=== PATIENT | female | born 1960 | race Caucasian/White ===

== ENCOUNTER 2019-10-14 13:33 | Outpatient (CLI) | payer OTHER, SELFPAY | END 2019-10-14 13:34 | disposition home or self-care (01) | LOC: ONCMED 13:36 | PROVIDERS: Family Provider Family Medicine; PCP Family Medicine; Visit Provider Internal Medicine Medical Oncology | DX: Z45.2 Encounter for adjustment and management of vascular access device (principal) | CPT/HCPCS: 96523 ==

== ENCOUNTER 2019-10-21 08:44 | Outpatient (CLI) | payer OTHER, SELFPAY ==
--- NOTE | 2019-10-21 08:53 | US_ITS ---
WS: [id number] RIGHT DIGITAL MAMMOGRAPHY WITH CAD CLINICAL INFORMATION: RT BREAST MASS COMPARISON: TECHNIQUE: 2 views of the right breast were obtained. FINDINGS: The right breast is composed of heterogeneous fibroglandular density tissue, which can limit the dete ction of small underlying mass lesions. Previous described asymmetry anterior medial right breast best seen on the cc view is unchanged. Ultr asound is pending. ULTRASOUND BREAST RIGHT TECHNIQUE: Ultrasound right breast focused area of concern. CLINICAL INFORMATION: RT BREAST MASS COMPARISON: None. FINDINGS: Ultrasound right breast 1:00 to 4:00. Ill-defined hypoechoic shadowing area taller than wide at the 3 :00 position. This area is difficult to visualize and measures approximately 1.2 x 0.6 CM. Recommend further evaluation with ultrasound-guided biopsy. In addition, at the 1:00 position is a slightly dilated lobulated duct with suggestion of intraductal lesion. This lesion measures 9.1 x 3.4 x 3.5 mm suspicious for papilloma. Recommend ultrasound-guide d biopsy of this area. US/US breast RT limited* [id number] IMPRESSION: BI-RADS: 4A-Suspicious: Low FOLLOW UP: US Guided Biopsy Recommended
== END 2019-10-21 08:45 | disposition home or self-care (01) ==
LOC: RADSHAW 08:46
PROVIDERS: Family Provider Family Medicine; PCP Family Medicine; Visit Provider Family Medicine
DX: N64.89 Other specified disorders of breast (principal); N64.9 Disorder of breast, unspecified
CPT/HCPCS: 76642; 77065

== ENCOUNTER 2019-10-27 06:04 | Day surgery (SDC) | payer OTHER, SELFPAY ==
[2019-10-24 10:06] VITALS: BMI 24.2
--- NOTE | 2019-10-27 06:52 | P.ANESASSM_ITS ---
Pre-Anesthetic Assessment Pre-Anesthetic Assessment: Height/Weight: Height 1.68 m Weight 68.039 kg Preop Diagnosis: screening colonoscopy Proposed Procedure: Operation Date: 10/27/19 07:00 Proposed Procedures p Colonoscopy(Not Applicable) - Christian Murray MD Was Beta Jimmy taken within 24 hours: N/A Last intake: Intake Last Liquid Date 10/26/19 Last Liquid Time 22:00 Last Solid Date 10/25/19 Last Solid Time 22:00 Social: Social History: No alcohol and No tobacco Exam: Pre-Anes Outpt Exam: alert, oriented x 3, clear to auscultation bilaterally and regular rate & rhythm Airway: Submandibular: WNL Cervical ROM: WNL MP: 2 Dentition: Full History/ROS: No significant history except as noted and No significant c omplaints Pulmonary: Pulmonary: None reported CV/HEM: CV/HEM: HTN : : None reported Hepatic: Hepatic: None reported GI: GI: None reported Metabolic: Metabolic: None reported Musc/skel: Musc/skel: None reported Neuropsych: Neuropsych: Neuropathy Anesthetic Plan: ASA status: III Anesthesia: MAC Risk of > 500 ml blood loss (7ml/kg in children): No PFSH Anesthesia PFSH: Social History Smoking and tobacco status: never smoked Alcohol intake: never Lives independently: Yes Household members: spouse Marital status: History of recent travel: No Data Anesthesia Cardiac Studies: No Data to Display
[2019-10-27 06:56] VITALS: BP 143/83; PULSE 65; RESP 18; TEMP 36.9; O2SAT 96
--- NOTE | 2019-10-27 06:58 | PM.HPUD ---
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
[2019-10-27 07:31] VITALS: BP 118/80; PULSE 68; RESP 16; TEMP 36.3; O2SAT 99
[2019-10-27] MEDS: sodium chloride 0.9% 1,000 ML 30 ML (07:59)
== END 2019-10-27 07:58 | disposition home or self-care (01) ==
PROVIDERS: Family Provider Family Medicine; PCP Family Medicine; Visit Provider Surgery
PROC: 0DJD8ZZ Inspection of Lower Intestinal Tract, Via Natural or Artificial Opening Endoscopic (ICD-10-PCS; CPT 45378; principal; 2019-10-27 07:00)
DX: Z12.11 Encounter for screening for malignant neoplasm of colon (principal); K57.30 Diverticulosis of large intestine without perforation or abscess without bleeding; K64.8 Other hemorrhoids; I10 Essential (primary) hypertension; Z92.3 Personal history of irradiation; Z92.21 Personal history of antineoplastic chemotherapy; Z85.42 Personal history of malignant neoplasm of other parts of uterus; Z82.49 Family history of ischemic heart disease and other diseases of the circulatory system
CPT/HCPCS: 12345; 45378; J2704; J7030

== ENCOUNTER 2019-10-31 06:40 | Outpatient (REF) | payer OTHER, SELFPAY ==
[2019-10-31 09:41] LABS: Estmated Average Glucose 114; Hemoglobin A1C 5.6 % (4.0-6.0)
[2019-10-31 10:50] LABS: Chol HDL Ratio 3.25 mg/dL (0.0-4.40); Cholesterol 257 mg/dL (0-200); Glucose 97 mg/dL (65-115); HDL Cholesterol 79 mg/dL (60-100); LDL Cholesterol Calculated 166 mg/dL (50-129); Triglycerides 58 mg/dL (0-150)
== END 2019-10-31 06:41 | disposition home or self-care (01) ==
LOC: LAB 06:40
PROVIDERS: Family Provider Family Medicine; PCP Family Medicine; Visit Provider Dermatology
DX: Z01.89 Encounter for other specified special examinations (principal)
CPT/HCPCS: 80061; 82947; 83036

== ENCOUNTER 2019-11-03 12:43 | Outpatient (CLI) | payer OTHER, SELFPAY ==
--- NOTE | 2019-11-03 12:55 | US_ITS ---
WS: [id number] ULTRASOUND-GUIDED RIGHT BREAST BIOPSY CLINICAL INFORMATION: right breast mass COMPARISON: October 21, 2019 FINDINGS: The procedure including risks, benefits, and complications were discussed with the patient who agreed to proceed. Using sterile technique patient was prepped and draped in the usual sterile fashion. Aft er 1% lidocaine utilizing real-time ultrasound guidance 5 14-gauge cores were obtained of the right b reast lesion at the 1 o'clock position. Subsequently a titanium clip was placed in the biopsy cavity. No immediate complications. Additional previously described vague ill-defined lesion at the 3:00 position is also compared. Some shadowing in this location which may be due to a superficial calcification. This is near the prior paulina mpectomy and may represent scar tissue. Recommend 3 month follow-up to assess stability. Findings dis cussed with patient at time of biopsy. Pathology demonstrates benign breast tissue with changes of disrupted fibroadenoma. No malignancy mary jane ntified. 3 month follow-up ultrasound to assess the ill-defined shadowing at the 3:00 position. Biopsy site ca n also be assessed at that time. Then recommend 6 month right diagnostic mammogram and ultrasound from the time of biopsy US/[place] [id number] IMPRESSION: 1. Uncomplicated ultrasound-guided right breast biopsy. 2. The pathology demonstrates benign breast tissue with changes of disrupted f ibroadenoma. No malignancy identified. BI-RADS: 3-Probably Benign FOLLOW UP: 3 Month Follow-up
== END 2019-11-03 12:44 | disposition home or self-care (01) ==
LOC: RAD 12:49
PROVIDERS: Family Provider Family Medicine; PCP Family Medicine; Visit Provider Surgery
DX: N63.10 Unspecified lump in the right breast, unspecified quadrant (principal)
CPT/HCPCS: 19083; 88305; J2001

== ENCOUNTER 2019-12-02 13:28 | Outpatient (CLI) | payer OTHER, SELFPAY | END 2019-12-02 13:29 | disposition home or self-care (01) | LOC: ONCMED 13:30 | PROVIDERS: Family Provider Family Medicine; PCP Family Medicine; Visit Provider Internal Medicine Medical Oncology | DX: Z45.2 Encounter for adjustment and management of vascular access device (principal) | CPT/HCPCS: 96523 ==

== ENCOUNTER 2020-01-30 09:19 | Outpatient (CLI) | payer OTHER, SELFPAY ==
--- NOTE | 2020-01-30 09:30 | US_ITS ---
WS: [id number] ULTRASOUND BREAST RIGHT TECHNIQUE: Ultrasound right breast focused area of concern. CLINICAL INFORMATION: ABNORMAL MAMMOGRAM COMPARISON: Ultrasound , mammogram September 12, 2019, and July 21, 2016 FINDINGS: Ultrasound right breast at the 1:00 and 3:00 position. Prior biopsy of breast lesion at the 1:00 posi tion November 03, 2019. Pathology demonstrates benign breast tissue with changes of disrupted fibroad enoma at the 1:00 position. Lobulated hypoechoic lesion corresponding to presumed fibroadenoma is unc hanged measuring 7.5 x 4.6 mm. Previously described vague hypoechoic lesion at the 3:00 position is difficult to reproduce but appea rs unchanged. This is PROBABLY BENIGN AND RECOMMEND DIAGNOSTIC MAMMOGRAPHY RIGHT BREAST AND ULTRASOUN D OF 3:00 LESION IN 6 MONTHS, AT THE TIME OF ANNUAL DIAGNOSTIC MAMMOGRAPHY US/US breast RT limited* [id number] IMPRESSION: BI-RADS 3 probably benign Follow up: 6 MONTH
== END 2020-01-30 09:20 | disposition home or self-care (01) ==
LOC: RAD 09:20
PROVIDERS: PCP Family Medicine; Visit Provider Surgery
DX: R92.8 Other abnormal and inconclusive findings on diagnostic imaging of breast (principal); N64.89 Other specified disorders of breast
CPT/HCPCS: 76642

== ENCOUNTER 2020-01-30 09:21 | Outpatient (CLI) | payer OTHER, SELFPAY | END 2020-01-30 09:22 | disposition home or self-care (01) | LOC: ONCMED 09:21 | PROVIDERS: PCP Family Medicine; Visit Provider Internal Medicine Medical Oncology | DX: Z45.2 Encounter for adjustment and management of vascular access device (principal); C55 Malignant neoplasm of uterus, part unspecified | CPT/HCPCS: 96523 ==

== ENCOUNTER 2020-03-01 13:27 | Outpatient (CLI) | payer OTHER, SELFPAY | END 2020-03-01 13:28 | disposition home or self-care (01) | LOC: ONCMED 13:29 | PROVIDERS: PCP Family Medicine; Visit Provider Internal Medicine Medical Oncology | DX: Z45.2 Encounter for adjustment and management of vascular access device (principal); C55 Malignant neoplasm of uterus, part unspecified | CPT/HCPCS: 96523 ==

== ENCOUNTER 2020-05-25 13:33 | Outpatient (CLI) | payer OTHER, SELFPAY | END 2020-05-25 13:34 | disposition home or self-care (01) | LOC: ONCMED 13:36 | PROVIDERS: PCP Family Medicine; Visit Provider Internal Medicine Medical Oncology | DX: Z45.2 Encounter for adjustment and management of vascular access device (principal) | CPT/HCPCS: 96523 ==

== ENCOUNTER 2020-07-26 06:37 | Outpatient (CLI) | payer OTHER, SELFPAY | END 2020-07-26 06:38 | disposition home or self-care (01) | LOC: ONCMED 06:38 | PROVIDERS: PCP Family Medicine; Visit Provider Internal Medicine Medical Oncology | DX: Z45.2 Encounter for adjustment and management of vascular access device (principal); C55 Malignant neoplasm of uterus, part unspecified | CPT/HCPCS: 96523 ==

== ENCOUNTER 2020-09-02 13:24 | Outpatient (CLI) | payer OTHER, SELFPAY | END 2020-09-02 13:25 | disposition home or self-care (01) | LOC: ONCMED 13:26 | PROVIDERS: PCP Family Medicine; Visit Provider Internal Medicine Medical Oncology | DX: Z45.2 Encounter for adjustment and management of vascular access device (principal) | CPT/HCPCS: 96523 ==

== ENCOUNTER 2020-09-13 15:58 | Outpatient (CLI) | payer OTHER, SELFPAY ==
--- NOTE | 2020-09-13 16:04 | XR_ITS ---
WS: [id number] SCREENING DEXA SCAN [employer] CLINICAL INFORMATION: POSTMENOPAUSAL COMPARISON: None. FINDINGS: The L1-L4 bone mineral density measures 1.187 g/cm2. This corresponds to a T score score of 0.1 and Z score of 1.2. Left femoral neck bone mineral density measures 0.874 g/cm2. This corresponds to a T score of -1.1 an d Z score of -0.2. Right femoral neck bone mineral density measures 0.847 g/cm2. This corresponds to a T score -1.3of an d Z score of -0.4. Mean femoral neck bone mineral density measures 0.860 g/cm2. This corresponds to a T score of -1.2 an d Z score of -0.3. XR/XR DEXA axial skeleton* [id number] IMPRESSION: Normal bone mineralization in the lumbar spine. Osteopenia in the femoral necks . Patient's FRAX calculated 10 year probability for major osteoporotic fracture i s 8.2 % and osteoporotic hip fracture is 0.8%.
== END 2020-09-13 15:59 | disposition home or self-care (01) ==
LOC: RADWPI 15:59
PROVIDERS: PCP Family Medicine; Visit Provider Family Medicine
DX: Z78.0 Asymptomatic menopausal state (principal)
CPT/HCPCS: 77080

== ENCOUNTER 2020-10-08 13:58 | Outpatient (CLI) | payer OTHER, SELFPAY ==
--- NOTE | 2020-10-08 14:07 | MM_ITS ---
WS: [id number] BILATERAL DIGITAL DIAGNOSTIC MAMMOGRAM MAMMOGRAPHY WITH CAD CLINICAL INFORMATION: N64.9 - Disorder of breast, unspecified COMPARISON: October 21, 2019 TECHNIQUE: Bilateral CC, MLO, and ML views. FINDINGS: The breasts are composed of heterogeneous fibroglandular density, which can limit the detection of sm all underlying mass lesions. Previously described asymmetric density inferior medial right breast best seen on the cc view is unch anged. Left breast is unremarkable. Ultrasound is pending. ULTRASOUND BREAST RIGHT TECHNIQUE: Ultrasound right breast focused area of concern. CLINICAL INFORMATION: N64.9 - Disorder of breast, unspecified COMPARISON: Prior ultrasound 01/30/2020 and 11/03/2019 October 21, 2019 FINDINGS: Previously described vague hypoechoic lesion at the 3:00 position is difficult to visualize today and measures smaller 2.1 x 2.6 mm. Asymmetry persists on the mammogram. This is PROBABLY BENIGN AND REC OMMEND ADDITIONAL SIX-MONTH FOLLOW-UP WITH RIGHT DIAGNOSTIC MAMMOGRAPHY AND ULTRASOUND TO ENSURE STAB ILITY MM/[place] [id number] IMPRESSION: BI-RADS: 3-Probably Benign FOLLOW UP: 6 Month Follow-up
== END 2020-10-08 13:59 | disposition home or self-care (01) ==
LOC: RADSHAW 14:02
PROVIDERS: PCP Family Medicine; Visit Provider Surgery
DX: N64.9 Disorder of breast, unspecified (principal)
CPT/HCPCS: 76642; 77066

== ENCOUNTER 2021-01-20 13:26 | Outpatient (CLI) | payer OTHER, SELFPAY | END 2021-01-20 13:27 | disposition home or self-care (01) | LOC: ONCMED 13:28 | PROVIDERS: PCP Family Medicine; Visit Provider Internal Medicine Medical Oncology | DX: Z45.2 Encounter for adjustment and management of vascular access device (principal) | CPT/HCPCS: 96523 ==

== ENCOUNTER 2021-04-12 08:55 | Outpatient (CLI) | payer OTHER, SELFPAY ==
--- NOTE | 2021-04-12 09:00 | MM_ITS ---
WS: [id number] RIGHT DIGITAL MAMMOGRAPHY WITH CAD CLINICAL INFORMATION: N64.89 - Other specified disorders of breast HISTORY: Six-month follow-up COMPARISON: October 08, 2020 TECHNIQUE: 5 views of the right breast were obtained. FINDINGS: The breasts are composed of heterogeneous fibroglandular density, which can limit the detection of sm all underlying mass lesions. Previously described asymmetric density inferior medial right breast bes t seen on the cc view measuring approximately 5 mm is unchanged. Biopsy clip right breast. Lucent centered calcification. Ultrasound is pending. ULTRASOUND BREAST RIGHT TECHNIQUE: Ultrasound right breast focused area of concern. CLINICAL INFORMATION: N64.89 - Other specified disorders of breast FINDINGS: Multiple prior ultrasounds were reviewed dating back to September 2019 Prior biopsy of a breast lesion at the 1:00 position November 03, 2019 that demonstrated disrupted fi broadenoma. Previously described vague hypoechoic lesion at 3:00 position near the lumpectomy site has been diffi cult to define over multiple prior examinations but is more distinct today measuring 7.5 x 7.2 x 3.8 mm. Hypoechoic lesion in this location is taller than wide and may represent scar tissue but indeterm inant. Due to persistence, recommend ultrasound-guided biopsy for definitive evaluation. MM/[place] [id number] IMPRESSION: BI-RADS: 4-Suspicious Finding-Biopsy Should Be Considered FOLLOW UP: US Guided Biopsy Recommended RECOMMEND ULTRASOUND-GUIDED BIOPSY OF THE 3:00 LESION RIGHT BREAST DESCRIBED AB JIMENEZ.
--- NOTE | 2021-04-12 09:30 | US_ITS ---
WS: [id number] RIGHT DIGITAL MAMMOGRAPHY WITH CAD CLINICAL INFORMATION: N64.89 - Other specified disorders of breast HISTORY: Six-month follow-up COMPARISON: October 08, 2020 TECHNIQUE: 5 views of the right breast were obtained. FINDINGS: The breasts are composed of heterogeneous fibroglandular density, which can limit the detection of sm all underlying mass lesions. Previously described asymmetric density inferior medial right breast bes t seen on the cc view measuring approximately 5 mm is unchanged. Biopsy clip right breast. Lucent centered calcification. Ultrasound is pending. ULTRASOUND BREAST RIGHT TECHNIQUE: Ultrasound right breast focused area of concern. CLINICAL INFORMATION: N64.89 - Other specified disorders of breast FINDINGS: Multiple prior ultrasounds were reviewed dating back to September 2019 Prior biopsy of a breast lesion at the 1:00 position November 03, 2019 that demonstrated disrupted fi broadenoma. Previously described vague hypoechoic lesion at 3:00 position near the lumpectomy site has been diffi cult to define over multiple prior examinations but is more distinct today measuring 7.5 x 7.2 x 3.8 mm. Hypoechoic lesion in this location is taller than wide and may represent scar tissue but indeterm inant. Due to persistence, recommend ultrasound-guided biopsy for definitive evaluation. US/US breast RT limited* [id number] IMPRESSION: BI-RADS: 4-Suspicious Finding-Biopsy Should Be Considered FOLLOW UP: US Guided Biopsy Recommended RECOMMEND ULTRASOUND-GUIDED BIOPSY OF THE 3:00 LESION RIGHT BREAST DESCRIBED AB BARBARA.
== END 2021-04-12 08:56 | disposition home or self-care (01) ==
PROVIDERS: PCP Family Medicine; Visit Provider Surgery
DX: N64.89 Other specified disorders of breast (principal); N63.15 Unspecified lump in the right breast, overlapping quadrants
CPT/HCPCS: 76642; 77065

== ENCOUNTER 2021-05-06 12:00 | Outpatient (CLI) | payer OTHER, SELFPAY ==
--- NOTE | 2021-05-06 13:00 | US_ITS ---
WS: [id number] ULTRASOUND RIGHT BREAST HISTORY: R92.8 - Other abnormal and inconclusive findings on diagnostic mammogram. COMPARISON: 04/12/2021, 10/08/2020, 09/12/2019. TECHNIQUE: 2-D and Doppler. Patient presents for biopsy of the RIGHT breast nodule seen on 04/12/2021. Imaging of the RIGHT breast at 3:00 demonstrates no abnormality. There are no suspicious findings or shadowing or distortion. I see will not be performed. This was explained to the patient. US/US breast RT limited* [id number] IMPRESSION: BI-RADS: 3-Probably Benign FOLLOW-UP: 6 Month Follow-up Diagnostic RIGHT breast mammogram in 6 months and possible ultrasound.
== END 2021-05-06 12:01 | disposition home or self-care (01) ==
LOC: RAD 12:03
PROVIDERS: PCP Family Medicine; Visit Provider Surgery
DX: R92.8 Other abnormal and inconclusive findings on diagnostic imaging of breast (principal)
CPT/HCPCS: 76642

== ENCOUNTER 2021-07-28 13:12 | Outpatient (CLI) | payer OTHER, SELFPAY | END 2021-07-28 13:13 | disposition home or self-care (01) | PROVIDERS: PCP Family Medicine; Visit Provider Internal Medicine Medical Oncology | DX: Z45.2 Encounter for adjustment and management of vascular access device (principal) | CPT/HCPCS: 96523 ==

== ENCOUNTER 2021-10-04 14:37 | Outpatient (RCR) | payer OTHER, SELFPAY | END 2021-10-24 23:59 | disposition home or self-care (01) | LOC: SPT 14:37 | PROVIDERS: PCP Family Medicine; Referring Provider Orthopaedic Surgery; Visit Provider Orthopaedic Surgery | DX: S46.092D Other injury of muscle(s) and tendon(s) of the rotator cuff of left shoulder, subsequent encounter (principal); X58.XXXD Exposure to other specified factors, subsequent encounter | CPT/HCPCS: 97110; 97162 ==

== ENCOUNTER → 2021-10-07 08:30 | Outpatient (BNVA) | payer OTHER, SELFPAY | PROVIDERS: PCP Family Medicine; Visit Provider Nurse Practitioner Family | DX: Z20.822 Contact with and (suspected) exposure to COVID-19 (principal) | CPT/HCPCS: 87635 ==

== ENCOUNTER 2021-10-25 06:00 | Outpatient (RCR) | payer OTHER, SELFPAY | END 2021-11-21 23:59 | disposition home or self-care (01) | LOC: SPT 06:00 | PROVIDERS: PCP Family Medicine; Referring Provider Orthopaedic Surgery; Visit Provider Orthopaedic Surgery | DX: S46.092D Other injury of muscle(s) and tendon(s) of the rotator cuff of left shoulder, subsequent encounter (principal); X58.XXXD Exposure to other specified factors, subsequent encounter | CPT/HCPCS: 97110 ==

== ENCOUNTER 2021-11-09 10:35 | Outpatient (CLI) | payer OTHER, SELFPAY ==
--- NOTE | 2021-11-09 10:47 | MM_ITS ---
WS: [id number] DIAGNOSTIC BILATERAL DIGITAL MAMMOGRAM WITH CAD RIGHT breast ultrasound, limited HISTORY: R92.8 - Other abnormal and inconclusive findings on diagnostic mammogram. COMPARISON: 04/12/2021, 10/08/2020, 10/21/2019, 09/12/2019 TECHNIQUE: Bilateral craniocaudad, mediolateral oblique, and mediolateral views are submitted. Spot c ompression views RIGHT CC and MLO. Computer aided detection utilized. Breast composition: The breasts are heterogeneously dense, which may obscure small masses. Biopsy cli p superior RIGHT breast. No associated soft tissue mass or calcification. There is an area of archite ctural distortion in the superior RIGHT breast for which additional views were performed. The distort ion Completely resolves and becomes more consistent with prior imaging studies. No abnormality in the LEF T breast. RIGHT breast ultrasound, limited. Ultrasound is performed of the RIGHT breast at 3:00, 10:00 and 12:00. There are no persistent abnorma lities. No area of shadowing or architectural distortion. The nodule at 12:00, 1 cm from the nipple w as previously biopsied. This mass was imaged on the prior study 10/21/2019 but labeled 1:00. MM/[place] [id number] IMPRESSION: BI-RADS: 2-Benign FOLLOW UP: 1 Year Follow-up
== END 2021-11-09 10:36 | disposition home or self-care (01) ==
LOC: RADSHAW 10:41
PROVIDERS: PCP Family Medicine; Visit Provider Surgery
DX: R92.8 Other abnormal and inconclusive findings on diagnostic imaging of breast (principal)
CPT/HCPCS: 76642; 77066

== ENCOUNTER 2021-11-21 05:48 | Day surgery (SDC) | payer OTHER, SELFPAY ==
[2021-11-18 13:55] VITALS: BMI 24.2
[2021-11-21 05:58] VITALS: PULSE 67; RESP 18; TEMP 36.5; O2SAT 99
--- NOTE | 2021-11-21 06:52 | W.PM.OPSFHP ---
Same Day Surgery H&P Indication for Procedure/HPI DATE OF PROCEDURE: November 21, 2021 CHIEF COMPLAINT/INDICATIONFOR SURGICAL PROCEDURE: port removal PREOP DIAGNOSIS: screening colonoscopy PLANNED PROCEDURE: Operation Date: 11/21/21 07:00 Proposed Procedures p Portacath Removal 29169/z45.2 LOCAL ONLY(Not Applicable) - Christian Murray MD Medications/Allergies* Home Medications Medication Instructions Recorded Confirmed Type cyanocobalamin (vitamin B-12) 500 500 mcg PO DAILY 09/26/19 11/21/21 History mcg tablet (B-12 DOTS) losartan 50 mg tablet 50 mg PO BID 09/26/19 11/21/21 History triamcinolone acetonide 0.5 % 1 applic TOPICAL BID PRN 09/26/19 11/18/21 History topical cream Allergies/Adverse Reactions Allergy/AdvReac Type Severity Reaction Status Date / Time No Known Allergies Allergy Verified 11/21/21 06:02 Pertinent History/Comorbid Conditions* Medical History (Updated 10/27/19 @ 07:28 by Christian Murray MD) H/O sigmoidoscopy History of chemotherapy History of radiation therapy Hypertension Neuropathy due to Chemo Uterine carcinosarcoma Stage II Surgical History (Updated 11/11/21 @ 13:05 by Christian Murray MD) Encounter for venous access device care Mediport right subclavian vein History of carpal tunnel release Right History of decompression of ulnar nerve Right History of lumpectomy of both breasts History of rotator cuff surgery left-08/2021 S/P total hysterectomy and BSO (bilateral salpingo-oophorectomy) With pelvic and periaortic lymph node dissection and omentectomy Status post colonoscopy 10/27/2019: Diverticulosis, follow-up colonoscopy in 5 years due to family history Family History (Updated 09/26/19 @ 10:10 by Rosie Marks RN) CAD (coronary artery disease) Father Cancer Father Denies family history of Anesthesia complication Bleeding disorder Social History Smoking and tobacco status: never smoked Alcohol intake: never Lives independently: Yes Household members: spouse Marital status: History of recent travel: No Pertinent Exam Findings alert, oriented x 3 and operative site marked Recommendations Surgery/Procedure today Coding Level of Care Code Acute 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
[2021-11-21 06:58] VITALS: BP 121/66; PULSE 64; RESP 12; TEMP 36.7; O2SAT 100
[2021-11-21] MEDS: lidocaine 1% INJ 20 mL INJECTION (07:11)
[2021-11-21 07:45] VITALS: BP 132/78; PULSE 68; RESP 18; O2SAT 100
--- NOTE | 2021-11-21 10:05 | PM.OP ---
Operative Report Date of procedure: November 21, 2021 Pre-op diagnosis: Status post chemotherapy, no longer requires a Port-A-Cath Post-op diagnosis: same Procedure done: Removal of Port-A-Cath from the right internal jugular vein Specimens removed/disposition: Port-A-Cath Surgeon: Christian Murray Anesthesia: Local Condition: stable Disposition: PACU Procedure: Patient was taken to the operating room and her right chest was prepped and draped in a sterile manner. 1% lidocaine with 0.5% Marcaine was infiltrated around the MediPort and catheter in the right internal jugular vein. Using a 15 blade the previous incision was opened, the subcutaneous tissue was divided using electrocautery and MediPort along the catheter was dissected free from the surrounding subcutaneous tissue and removed entirely. The capsule around the Mediport was excised using electrocautery, the wound was irrigated with saline, hemostasis ensured with electrocautery and subcutaneous tissue was approximated using 3-0 Vicryl suture and skin was closed using running subcuticular 4-0 Monocryl suture. 4x4 and sterile dressings were used as a pressure dressing. The patient was transferred to the recovery room in stable condition. The MediPort was sent to pathology
== END 2021-11-21 07:44 | disposition home or self-care (01) ==
PROVIDERS: PCP Family Medicine; Visit Provider Surgery
PROC: (CPT 36589; principal; 2021-11-21 07:00)
DX: Z45.2 Encounter for adjustment and management of vascular access device (principal)
CPT/HCPCS: 36590; J3490

== ENCOUNTER 2021-11-22 06:00 | Outpatient (RCR) | payer OTHER, SELFPAY | END 2021-12-01 23:59 | disposition home or self-care (01) | LOC: SPT 06:00 | PROVIDERS: PCP Family Medicine; Referring Provider Orthopaedic Surgery; Visit Provider Orthopaedic Surgery | DX: S46.092D Other injury of muscle(s) and tendon(s) of the rotator cuff of left shoulder, subsequent encounter (principal); X58.XXXD Exposure to other specified factors, subsequent encounter | CPT/HCPCS: 97110 ==

== ENCOUNTER → 2022-04-06 15:48 | Outpatient (BNVA) | payer OTHER, SELFPAY | PROVIDERS: PCP Family Medicine; Referring Provider Family Medicine; Visit Provider Internal Medicine | DX: E04.9 Nontoxic goiter, unspecified (principal) | CPT/HCPCS: 36415; 83516; 84439; 84443; 86376; 86800 ==

== ENCOUNTER 2022-06-06 11:51 | Outpatient (CLI) | payer OTHER, SELFPAY ==
--- NOTE | 2022-06-06 12:00 | US_ITS ---
WS: [id number] THYROID ULTRASOUND HISTORY: Goiter COMPARISON: 09/25/2017 Right lobe: 2.8 cm x 2.6 cm x 6.6 cm (w x ap x l). Volume: 25.4 cm3. Enlarged diffusely heterogeneous gland. Mild increased vascularity. The echogenic foci seen on the pr ior examination are not as apparent today. There are no discrete nodules. Left lobe: 2.6 cm x 2.1 cm x 6.5 cm (w x ap x l). Volume: 18.4 cm3. Enlarged gland. Very mildly heterogeneous with small ill-defined hypoechoic nodules. No mass. Increas ed vascularity. Small lymph node versus parathyroid adenoma measuring 5 x 5 x 7 mm posterior to the inferior LEFT thy roid. Isthmus: 0.4 cm. US/US thyroid [id number] IMPRESSION: 1. Enlarged mildly heterogeneous hypervascular thyroid consistent with thyroid itis. 2. No discrete nodule.
== END 2022-06-06 11:52 | disposition home or self-care (01) ==
LOC: RAD 11:53
PROVIDERS: PCP Family Medicine; Visit Provider Internal Medicine
DX: E04.9 Nontoxic goiter, unspecified (principal)
CPT/HCPCS: 76536

== ENCOUNTER → 2022-08-29 10:37 | Outpatient (BNVA) | payer OTHER, SELFPAY | PROVIDERS: PCP Family Medicine; Visit Provider Family Medicine | DX: Z00.00 Encounter for general adult medical examination without abnormal findings (principal) | CPT/HCPCS: 80053; 80061; 84443; 85025 ==

== ENCOUNTER 2022-11-17 07:54 | Outpatient (CLI) | payer OTHER, SELFPAY ==
--- NOTE | 2022-11-17 08:00 | MM_ITS ---
WS: [id number] VIEWS: MLO and CC views both breasts. 3D digital tomosynthesis is also included in this exam. Comparison made with prior exam of 07/21/2016, 09/12/2019, 10/21/2019, 10/08/2020, 11/09/2021.. Findings: There was no sign of mass, architectural distortion or suspicious calcification in either breast. Sta ble appearing parenchymal densities in both breasts. Biopsy marker in the central upper right breast. Heterogeneously dense MM/[place] [id number] Impression: BI-RADS: 2-Benign FOLLOW-UP: 1 Year Follow-up This mammogram was also analyzed by the Computer Aided Detection System R2 Imag e [employer] Worker.
== END 2022-11-17 07:55 | disposition home or self-care (01) ==
LOC: RAD 07:56
PROVIDERS: PCP Family Medicine; Visit Provider Family Medicine
DX: Z12.31 Encounter for screening mammogram for malignant neoplasm of breast (principal)
CPT/HCPCS: 77063; 77067

== ENCOUNTER → 2023-05-10 09:23 | Outpatient (BNVA) | payer OTHER, SELFPAY | PROVIDERS: PCP Family Medicine; Visit Provider Internal Medicine | DX: E04.9 Nontoxic goiter, unspecified (principal); E06.3 Autoimmune thyroiditis | CPT/HCPCS: 36415; 84439; 84443 ==

== ENCOUNTER 2023-05-22 06:07 | Outpatient (CLI) | payer OTHER, SELFPAY ==
--- NOTE | 2023-05-22 06:15 | US_ITS ---
WS: [id number] THYROID ULTRASOUND HISTORY: goiter COMPARISON: 06/06/2022 Right lobe: 3.2 cm x 2.8 cm x 7.1 cm (w x ap x l). Volume: 32.2 cm3. Markedly enlarged heterogeneous thyroid with increased vascularity. No well-formed discrete mass is i dentified. Very minimal progression of enlargement since the prior examination. Left lobe: 2.4 cm x 2.4 cm x 6.4 cm (w x ap x l). Volume: 19.0 cm3. Moderately enlarged heterogeneous thyroid with increased vascularity. No well-formed nodule. Possible developing nodule measuring 5 x 6 x 7 mm in the mid gland. Margins are poorly visualized. No echogen ic foci. Isthmus: 0.7 cm. IMPRESSION: 1. Enlarged heterogeneous, hypervascular thyroid. Consider Lakesha's thyroiditis. 2. There are no suspicious nodules or masses. 3. RIGHT thyroid lobe as slightly increased in size since 06/06/2022.
== END 2023-05-22 06:08 | disposition home or self-care (01) ==
LOC: RAD 06:08
PROVIDERS: PCP Family Medicine; Visit Provider Internal Medicine
DX: E04.9 Nontoxic goiter, unspecified (principal); E06.3 Autoimmune thyroiditis
CPT/HCPCS: 76536

== ENCOUNTER → 2023-07-30 13:21 | Outpatient (BNVA) | payer OTHER, SELFPAY | PROVIDERS: PCP Family Medicine; Visit Provider Podiatrist Foot & Ankle Surgery | DX: G57.63 Lesion of plantar nerve, bilateral lower limbs | CPT/HCPCS: 73630 ==

== ENCOUNTER 2023-08-14 11:37 | Outpatient (CLI) | payer OTHER, SELFPAY ==
--- NOTE | 2023-08-14 11:45 | USR_ITS ---
PROCEDURE INFORMATION: Exam: US Left Non-Vascular Joint or Other Extremity Structure Exam date and time: 08/14/2023 12:04 PM Age: 63 years old Clinical indication: Pain; Foot; Bilateral; Additional info: Bilateral us- to rule out mortons neuroma TECHNIQUE: Imaging protocol: Left US joint or other nonvascular extremity structure or structures. Real-time ultrasound with image documentation. Limited study. Exam focused on the lower extremity in the region of clinical interest. COMPARISON: US pelvic complete* [id number] 12/20/2016 10:05 AM FINDINGS: Soft tissues: Unremarkable. No loculated collections. No evidence of Fernandez's neuroma. No evidence of any abnormal mass. US/US soft tissue/extremity [id number] IMPRESSION: Unremarkable US.
== END 2023-08-14 11:38 | disposition home or self-care (01) ==
LOC: RAD 11:37
PROVIDERS: PCP Family Medicine; Visit Provider Podiatrist Foot & Ankle Surgery
DX: G57.63 Lesion of plantar nerve, bilateral lower limbs (principal)
CPT/HCPCS: 76882

== ENCOUNTER 2023-11-19 08:57 | Outpatient (CLI) | payer OTHER, SELFPAY ==
--- NOTE | 2023-11-19 09:12 | MM_ITS ---
WS: [id number] SCREENING DIGITAL TOMOSYNTHESIS MAMMOGRAM WITH CAD HISTORY: SCREENING COMPARISON: 11/17/2022, 11/09/2021 and 04/12/2021 Bilateral CC and MLO with tomosynthesis views submitted. Synthetic mammography reviewed. Computer aid ed detection analyzed. Breast composition: The breasts are heterogeneously dense, which may obscure small masses. No suspici ous masses, microcalcifications or architectural distortion. Stable calcification central RIGHT breas t. There is also a biopsy clip. IMPRESSION: MM/[place] [id number] BI-RADS: 2-Benign FOLLOW UP: 1 Year Follow-up
== END 2023-11-19 08:58 | disposition home or self-care (01) ==
LOC: RAD 08:58
PROVIDERS: PCP Family Medicine; Visit Provider Family Medicine
DX: Z12.31 Encounter for screening mammogram for malignant neoplasm of breast (principal); R92.333 Mammographic heterogeneous density, bilateral breasts; R92.1 Mammographic calcification found on diagnostic imaging of breast
CPT/HCPCS: 77063; 77067

== ENCOUNTER → 2024-03-13 08:03 | Outpatient (BNVA) | payer OTHER, SELFPAY | PROVIDERS: PCP Family Medicine; Visit Provider Family Medicine | DX: E04.9 Nontoxic goiter, unspecified (principal); R04.0 Epistaxis; J34.3 Hypertrophy of nasal turbinates; J34.2 Deviated nasal septum; I10 Essential (primary) hypertension; N18.9 Chronic kidney disease, unspecified; R79.89 Other specified abnormal findings of blood chemistry; R53.83 Other fatigue | CPT/HCPCS: 80053; 80061; 82306; 84443; 85025 ==

== ENCOUNTER 2024-06-10 07:59 | Outpatient (CLI) | payer OTHER, SELFPAY ==
--- NOTE | 2024-06-10 08:00 | US_ITS ---
WS: [id number] THYROID ULTRASOUND HISTORY: goiter COMPARISON: 05/22/2023 Right lobe: 2.6 cm x 3.0 cm x 5.6 cm (w x ap x l). Volume: 20.8 cm3. Enlarged thyroid with lobulated contours. Scattered cystic areas. No discrete mass or nodule. No incr eased vascularity. Thyroid is measuring slightly smaller in size. Left lobe: 2.6 cm x 2.6 cm x 5.8 cm (w x ap x l). Volume: 18.5 cm3. Enlarged heterogeneous thyroid with multiple tiny cystic nodules. No mass or increased vascularity. Isthmus: 0.5 cm. US/US thyroid [id number] IMPRESSION: 1. Heterogeneous enlarged thyroid. Most likely due to a goiter. There is less vascularity on today's examination suggesting there almost also may be a compon ent of Lakesha's thyroiditis. 2. RIGHT thyroid has decreased slightly in size since the prior study.
== END 2024-06-10 08:00 | disposition home or self-care (01) ==
PROVIDERS: PCP Family Medicine; Visit Provider Internal Medicine
DX: E04.9 Nontoxic goiter, unspecified (principal); E06.3 Autoimmune thyroiditis
CPT/HCPCS: 76536

== ENCOUNTER 2024-11-20 13:44 | Outpatient (CLI) | payer OTHER, SELFPAY ==
--- NOTE | 2024-11-20 13:45 | MM_ITS ---
WS: [id number] BILATERAL SCREENING DIGITAL TOMOSYNTHESIS MAMMOGRAM WITH CAD HISTORY: SCREENING COMPARISON: 11/19/2023, 11/17/2022, 11/09/2021 Bilateral CC and MLO views with tomosynthesis and synthetic mammography submitted. Computer aided detection analyzed. Breast composition: The breasts are heterogeneously dense, which may obscure small masses. No suspicious masses, microcalcifications or architectural distortion. Benign calcifications in each breast. MM/MM [facility] tomosynthesis [id number] IMPRESSION: BI-RADS: 2 - Benign FOLLOW UP: 1 Year Follow-up
== END 2024-11-20 13:45 | disposition home or self-care (01) ==
PROVIDERS: PCP Family Medicine; Visit Provider Family Medicine
DX: Z12.31 Encounter for screening mammogram for malignant neoplasm of breast (principal); R92.333 Mammographic heterogeneous density, bilateral breasts; R92.1 Mammographic calcification found on diagnostic imaging of breast
CPT/HCPCS: 77063; 77067

== ENCOUNTER 2025-05-06 12:31 | Outpatient (CLI) | payer OTHER, SELFPAY ==
--- NOTE | 2025-05-06 12:37 | US_ITS ---
WS: [id number] THYROID ULTRASOUND HISTORY: goiter COMPARISON: 06/10/2024, 05/22/2023 Right lobe: 2.7 cm x 3.0 cm x 5.7 cm (w x ap x l). Volume: 21.8 cm3. Enlarged heterogeneous thyroid. There are a few scattered cystic areas throughout the gland. No nodules are identified. Decreasing vascularity since 05/22/2023. Left lobe: 2.5 cm x 2.4 cm x 6.1 cm (w x ap x l). Volume: 17.8 cm3. Enlarged heterogeneous thyroid. There are few tiny cystic nodules. No solid mass. Decrease in vascularity since 2022. Isthmus: 0.5 cm. US/US thyroid [id number] IMPRESSION: 1. Enlarged thyroid with no nodules. 2. Decrease in vascularity since 2022 within the gland. Consistent with goiter .
[2025-05-06 15:14] LABS: Free T4 Free Thyroxine 0.86 ng/dL (0.82-1.77); Thyroid Stimulating Hormone 2.14 uIU/mL (0.27-4.20)
== END 2025-05-06 12:32 | disposition home or self-care (01) ==
PROVIDERS: PCP Family Medicine; Visit Provider Internal Medicine
DX: E04.9 Nontoxic goiter, unspecified (principal); E06.3 Autoimmune thyroiditis; R59.9 Enlarged lymph nodes, unspecified
CPT/HCPCS: 36415; 76536; 84439; 84443

== ENCOUNTER → 2025-07-08 07:59 | Outpatient (BNVA) | payer OTHER, SELFPAY | PROVIDERS: PCP Family Medicine; Visit Provider Family Medicine | DX: E06.3 Autoimmune thyroiditis (principal); Z00.00 Encounter for general adult medical examination without abnormal findings | CPT/HCPCS: 80053; 80061; 84443; 85025; 86140 ==

== ENCOUNTER 2025-07-13 14:46 | Outpatient (CLI) | payer OTHER, SELFPAY ==
--- NOTE | 2025-07-13 15:00 | XR_ITS ---
WS: [id number] DEXA (DUAL ENERGY X-RAY ABSORPTIOMETRY) Bone mineral density was performed using a [employer] machine. HISTORY: screening COMPARISON: 09/13/2020 Lumbar spine BMD (L1-L4): 1.080 g/cm2 T score: -0.8 Z score: 0.8 Total hip BMD: Left: 0.834 g/cm2. T score: -1.4 Z score: -0.2 Right: 0.787 g/cm2. T score: -1.7 Z score: -0.5 10 year probability of a major osteoporotic fracture is 9.7%. Compared to the prior study from 09/13/2020. Lumbar spine bone mineral density has decreased by 9.0%. Bilateral hips bone mineral density has decreased by 5.8%. XR/XR DEXA axial skeleton* [id number] IMPRESSION: OSTEOPENIA based upon the WHO classification for females. Significant decrease in bone mineral density within both the lumbar spine and h ips since the prior exam.
== END 2025-07-13 14:47 | disposition home or self-care (01) ==
LOC: RAD 14:46
PROVIDERS: PCP Family Medicine; Visit Provider Family Medicine
DX: Z13.820 Encounter for screening for osteoporosis (principal); Z00.00 Encounter for general adult medical examination without abnormal findings; M85.88 Other specified disorders of bone density and structure, other site
CPT/HCPCS: 77080